=== PATIENT | male | born 1990 | race Caucasian/White ===

== ENCOUNTER 2023-10-11 05:50 | Day surgery (SDC) | payer OTHER, SELFPAY ==
[2023-10-05 08:47] VITALS: BMI 26.7
[2023-10-11 06:50] VITALS: BP 127/59; PULSE 84; RESP 20; TEMP 37.2; O2SAT 98
--- NOTE | 2023-10-11 07:17 | WPDHPUPDATE1 ---
History and Physical Update Update Date/Time: 10/11/23 07:17 History and Physical has been reviewed, including an updated exam of the patient. There are NO changes in the patient's condition. Risks, benefits, and alternatives have been discussed and questions answered. Patient agrees to proceed with procedure.
[2023-10-11 07:33] VITALS: BP 104/63; PULSE 76; RESP 12; O2SAT 99
[2023-10-11 07:43] VITALS: BP 101/57; PULSE 76; RESP 12; O2SAT 99
[2023-10-11 07:53] VITALS: BP 98/56; PULSE 75; RESP 16; O2SAT 99
[2023-10-11] MEDS: LIDO 1%/EPINEPHRINE 1:100,000 50 ML VIAL 10 ML INFILTRATE (07:53)
[2023-10-11] MEDS: BUPivacaine HCL 0.5% 10 ML AMP INFILTRATE (07:53)
[2023-10-11 08:04] VITALS: BP 144/81; PULSE 76; RESP 16; O2SAT 100
--- NOTE | 2023-10-11 08:12 | W.PM.PROC2 ---
Procedure Note - Detailed Date of Procedure 10/11/23 Pre-op Diagnosis Right Flank Subcutaneous Mass Post-op Diagnosis Other ( Right flank epidermal inclusion cyst.) Procedure Performed Excision right flank epidermal inclusion cyst with 4.5cm intermediate layered wound closure Surgeon Reynold Bain MD Licensed Massage Practitioner [place] [employer]AY[employer] student Anesthesia Local Indications patient is a 33-year-old gentleman who presents with a epidermal inclusion cyst on the right flank region. Is on his belt line and causes irritation. He presents now for excision. Findings The epidermal inclusion cyst measured 2.5x1.5x1cm. Required a 4.5cm intermediate layered wound closure. Description of Procedure After informed consent was obtained patient brought to the operating was placed in the left lateral decubitus position on operating table. The area the right flank region was then prepped and draped usual sterile fashion. A time-out was then performed correctly identifying the patient as well as procedure to be performed. No antibiotics were given as no IV was started as this was a local anesthetic procedure. I then proceeded to anesthetize the area the 1% lidocaine mixed with 0.5% Marcaine. Once adequate anesthesia was obtained I then proceeded to make a transverse elliptical incision with a scalpel to include the jones of the cyst. The incision was carried deeply down to the dermis skin with a scalpel the electrocautery excised out the ellipse of tissue containing the cyst wall without rupturing the cyst. The specimen was measured sent to pathology for examination. The cyst measured 2.5x1.5x1cm. I then achieved hemostasis in incision utilized electrocautery. The wound was then closed with a intermediate layered wound closure measuring 4.5cm. Interrupted 3-0 Vicryl sutures were placed in the subcutaneous tissues and in the deep dermal layer. The skin edges were approximated utilizing a running subcuticular 4-0 Monocryl suture. The incision was then cleaned the skin glue was applied. The patient tolerated the procedure well no complications. All sponges, needles, and instrument counts were correct at the end procedure. EBL was _2__cc. The patient was awakened and taken to recovery in stable and satisfactory condition. Implants None Estimated Blood Loss 2 Drains No Packing No Pathology Yes ( epidermal inclusion cyst sent to pathology) Complications No immediate complications Condition Stable Disposition PACU [facility] Billing Surgery - Charge Forward: Surgery Billing
== END 2023-10-11 08:19 | disposition home or self-care (01) ==
PROVIDERS: PCP Internal Medicine; Visit Provider Surgery
PROC: (CPT 21931; principal; 2023-10-11 07:30)
DX: R22.2 Localized swelling, mass and lump, trunk (principal)
CPT/HCPCS: 21931

== ENCOUNTER 2023-10-11 10:15 | Outpatient (NON) | payer OTHER, SELFPAY | END 2023-10-11 10:16 | disposition home or self-care (01) | LOC: ANHLAB 10-12 10:16 | PROVIDERS: PCP Internal Medicine; Visit Provider Surgery | DX: L72.0 Epidermal cyst (principal) | CPT/HCPCS: 88304 ==

== ENCOUNTER 2025-01-22 11:52 | Outpatient (CLI) | payer OTHER, SELFPAY | END 2025-01-22 11:53 | disposition home or self-care (01) | LOC: GOSHIMG 11:52 | PROVIDERS: PCP Clinical Nurse Specialist; Visit Provider Clinical Nurse Specialist | DX: R07.81 Pleurodynia (principal); D64.9 Anemia, unspecified | CPT/HCPCS: 71046; 71100 ==

== ENCOUNTER 2025-02-18 08:15 | Outpatient (CLI) | payer OTHER, SELFPAY ==
--- NOTE | ~2025-02-18 | CT_ITS ---
EXAMINATION: CT abdomen pelvis w con DATE: 02/18/2025 08:43 INDICATION: Pleurodynia and right flank pain and iron deficiency anemia TECHNIQUE: Computed tomography (CT) of the abdomen and pelvis was performed with 100 mL Omnipaque-350 intravenous contrast. Automated exposure control and iterative reconstruction technique were employe d. The dose-length product was 446.01 mGy-cm. COMPARISON: None FINDINGS: Lung bases are clear. Heart size normal. No pericardial or pleural effusion. Liver, gallbladder, sple en, pancreas, bilateral adrenal glands and kidneys are normal. Bladder is normal. Bowels including th e appendix are normal. No free intraperitoneal gas or fluid. No pathologically enlarged abdominal or pelvic lymphadenopathy. Mild lumbar and lower thoracic spondylosis. IMPRESSION: 1. Normal CT of the abdomen and pelvis. Reviewed, dictated and finalized at location B.
== END 2025-02-18 08:16 | disposition home or self-care (01) ==
LOC: MICIMG 08:15
PROVIDERS: PCP Clinical Nurse Specialist; Visit Provider Clinical Nurse Specialist
DX: R07.81 Pleurodynia (principal); D50.9 Iron deficiency anemia, unspecified; R10.9 Unspecified abdominal pain
CPT/HCPCS: 74177; Q9967

== ENCOUNTER 2025-03-09 10:47 | Outpatient (CLI) | payer OTHER, SELFPAY ==
[2025-03-09 11:09] LABS: Basophils Absolute Auto 0.1 K/mm3 (0.0-0.1); Basophils Percent Auto 0.8 % (0.2-1.2); Eosinophils Absolute Auto 0.1 K/mm3 (0-0.3); Eosinophils Percent Auto 1.1 % (0-4.4); Hematocrit 37.8 % (42.0-52.0); Hemoglobin 12.4 g/dL (14.0-18.0); Immature Granulocyte Absolute 0.01 K/mm3 (0.00-0.031); Immature Granulocyte Percent A 0.2 % (0-0.5); Lymphocytes Absolute Auto 2.16 K/mm3 (0.9-3.2); Lymphocytes Percent Auto 32.6 % (18.3-44.2); Mean Corpuscular HGB Conc 32.8 g/dl (32-36); Mean Corpuscular Hemoglobin 28.8 pg (26-34); Mean Corpuscular Volume 87.7 fl (80-100); Mean Platelet Volume 10.8 fl (7.4-10.4); Monocytes Absolute Auto 0.6 K/mm3 (0.1-0.6); Monocytes Percent Auto 9.5 % (2.6-8.5); Neutrophils Absolute Auto 3.7 K/mm3 (1.3-6.7); Neutrophils Percent Auto 55.8 % (45.5-73.1); Platelet Count Result 344 k/mm3 (150-375); Red Blood Count 4.31 M/mm3 (4.6-6.20); Red Cell Distribution Width 16.1 % (11.5-14.5); White Blood Count 6.6 K/mm3 (4.5-10.0)
--- OUTSIDE RECORDS SUMMARY | 2025-03-09 12:14 | XMS_ITS | Encounter Summary ---
Author Organization [facility] [employer] [facility] Address [address] [place] [address] Care Team Providers Care Blood Bank Laboratory Professional Name Role Phone Unavailable Primary Care Provider Unavailabl e Reason for Visit * Reason Comments Establish Care Encounter Details Date Type Department Care Team (Late st Contact Info) Description 03/09/2025 10:30 AM CDT Office Visit [facility] Oncology and Hematology - Khurram [address] [facility] [address] [place] [address] [place] [address] [place] [address] [address] [place] [address] Chronic anemia (Primary Dx) Social History Tobacco Use Types Packs/Day Years Used Date Smoking Tobacco: Never Smokeless Tobacco: Never Alcohol Use Standard Drinks/Week Comments Yes 0 (1 standard drink = 0.6 oz pur e alcohol) Occasionally Sex and Gender Information Value Date Recorded Sex Assigned at Not on file 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 Gender Identity Not on file Sexual Orientation Not on file documented as of this encounter Last Filed Vital Signs Vital Sign Reading Time Taken Comments Blood Pressure 115/71 03/09/2025 10:17 AM CDT Pulse 63 03/09/2025 10:17 AM CDT Temperature 36.4 C (97.6 F) 03/09/2025 10:17 AM CDT Respiratory Rate 17 03/09/2025 10:1 7 AM CDT Oxygen Saturation 97% 03/09/2025 10: 17 AM CDT Inhaled Oxygen Concentration - - Weight 74.8 kg (164 lb 12.8 oz) 025 10:17 AM CDT Height 165.1 cm (5' 5 ) 03/09/2025 10:1 7 AM CDT Body Mass Index 27.42 03/09/2025 10:17 AM CDT documented in this encounter Progress Notes * Jp Bentley MD - 03/09/2025 10:29 AM CDT Hematology-oncology consult Note Requesting Physician Primary Care Physician No primary care provider on file. Problem list There is no problem list on file for this patient. Previous TREATMENT ? Measurable Disease ? Reason for Visit Jose Kamara is a 34 y.o. male who was referred for consultation for iron deficiency anemia. History of present illness This is a pleasant 34-year-old male with been in good health referred to me for iron deficiency anemia. He denies any bleeding including melena hematochezia. His weight and appetite stable.Denies any diarrhea and constipation. Denies any abdominal pain. No nausea and vomiting. Patient had routine blood test done on November 03 that showed hemoglobin of 11.4. Repeat blood test on November 25, 2024 showed hemoglobin of 11.8. Iron level showed 58 with iron saturation of 13% and ferritin of 5. He was started on oral iron 65 mg once a day. He is feeling slightly better. He never had colonoscopy done. He denies being a vegetarian but eats red meat very rarely. He denies any stomach surgeries in past. Denies any family history of anemia. No other new complaints. Past Medical History No past medical history on file. Surgical History Past Surgical History: Procedure Laterality Date HX CYSTECTOMY 2022 Medications Current Outpatient Medications Medication Sig Dispense Refill ferrous sulfate 325 mg (65 mg iron) tablet Take 325 mg by mouth daily. No current facility-administered medications for this visit. Allergies No Known Allergies Immunizations: Immunization History Administered Date(s) Administered ([employer])(12 YR UP) COVID-19 VACCINE - EMERGENCY USE AUTHORIZATION, MRNA, [id number](PF) 30 MCG/0.3 MLIM SUSP 12/20/2020, 01/10/2021 Family History Family History Problem Relation Name Age of Onset Diabetes Father No Known Problems Mother No Known Problems Brother Social History Social History Tobacco Use Smoking status: Never Smokeless tobacco: Never Substance Use Topics Alcohol use: Yes Comment: Occasionally Review of Systems Constitutional: Patient did not mention fever; no night sweats; no anorexia; no weight loss; no fatique NEENT: Patient did not mention headache; no change in vision; no change in hearing; no sore throat;no dysphagia Respiratory: Patient did not mention shortness of breath; no pleuritic chest pain; no cough; no hemoptysis Cardiac: Patient did not mention cardiac-like chest pain; no palpitations; no orthopnea; no PND; noDOE GI: Patient did not mention abdominal pain; no nausea; no vomiting; no diarrhea; no hematochezia; no melena : Patient did not mention dysuria; no frequency; no hesitancy; no hematuria DRY CLEANING MACHINE OPERATOR: Musculosketetal: Patient did not mention bone pain; no arthralgia; no joint swelling; no myalgia; Skin: Patient did not mention pruritis; no rash; no petechiae; no ecchymoses Endocrine: Patient did not mention polydipsia; no polyuria; no unusual weight gain Neuro: Patient did not mention headache; no change in vision; no sensory changes; no muscle weakness; no confusion; no seizures Psych: Patient did not mention anxiety; no depression; Physical Exam Vitals: As per nursing note Constitutional: Well developed, well nourished, no acute distress, non-toxic appearance Teeth and gum. No signs of infection or swelling. Eyes: PERRL, conjunctiva normal HEENT: Atraumatic, external ears normal, nose normal, oropharynx moist, no pharyngeal exudates. no sinus tenderness Neck- normal range of motion, no tenderness, supple Respiratory: No respiratory distress, normal breath sounds, no rales, no wheezing Cardiovascular: Normal rate, normal rhythm, no murmurs, no gallops, no rubs GI: Soft, nondistended, normal bowel sounds, nontender, no splenomegaly, no hepatomegaly, no mass, no rebound, no guarding : No costovertebral angle tenderness Musculoskeletal: No edema, no tenderness, no deformities. Back- no tenderness Integument: Well hydrated, no rash, Digits and nails inspection normal Lymphatic: No lymphadenopathy noted Neurologic: Alert & oriented x 3, CN 2-12 normal, normal motor function, normal sensory function, no focal deficits noted Psychiatric: Speech and behavior appropriate ? labs No results found for this or any previous visit (from the past 24 hours). Labs from November 03, 2024 showed hemoglobin 11.4 WBC 6.3 MCV 83 platelets 344,000 iron 58 saturation 13 ferritin 5 total bilirubin 0.4 Pathology ? Imaging & Other Studies Performance Status? Assessment / Plan: ? Iron deficiency anemia. Patient is a pleasant 34-year-old male who has been in [facility] had routine blood testing done in October of last year that showed anemia with iron deficiency. He denies any bleeding including melena hematochezia. Denies any weight loss. He denies being a vegetarian but eats red meat very rarely. Denies any previous stomach surgeries. He was started on oral iron 65 mg once a day in October and feeling slightly better. At this time I will repeat labs including iron studies, soluble transferrin receptor, vitamin B12 and folic acid level along with CBC andCMP. Will check Hemoccult stool testing. Based on the repeat labs will decide about iron infusion. Based on the Hemoccult stool finding we will recommend GI consultation. I have answered all the patient's patient's satisfaction. Follow-up with me in 2 weeks. Thank you very much for allowing me to participate in Jose Asad's evaluation and management. Please feel free to contact if I can be of any further assistance in your patient???s care requiring hematology or oncology evaluation. Sincerely, ? ? Jp Bentley M.D. cell TOBACCO COUNSELING He is not a tobacco/nicotine user. Jp Bentley MD ,03/09/2025 11:04 AM ? Total time spent 60 minutes, two third of the total time spent counseling patient [id number]. CC:? documented in this encounter Plan of Treatment Upcoming Encounters Date Type Department Care Team (Late st Contact Info) Description 03/27/2025 10:00 AM CDT Office Visit [facility] Oncology and Hematology - Khurram [address] [facility] [address] [place] [address] Jp Bentley MD [address] [facility] [address] [place] [address] Scheduled Orders Name Type Priority Associated Diagnoses Orde r Schedule CBC WITH DIFFERENTIAL Lab Stat Chronic anemia Expected: 03/09/2025, Expires: 03/09/2026 COMPREHENSIVE METABOLIC PANEL Lab Stat Chronic anemia Expected: 03/09/2025, Expires: 03/09/2026 FERRITIN Lab Routine Chronic anemia Expected: 03/09/2025, Expires: 03/09/2026 IRON, TIBC, AND PERCENT SATURATION Lab Routine Chronic anemia Expected: 03/09/2025, Expires: 03/09/2026 VITAMIN B12 AND FOLATE Lab Routine Chronic anemia Expected: 03/09/2025, Expires: 03/09/2026 TRANSFERRIN RECEPTOR TFR SOLUBLE Lab Routine Chronic anemia Expected: 03/09/2025, Expires: 03/09/2026 OCCULT BLOOD IMMUNOASSAY, COLORECTAL SCREEN Lab Routine Chronic anemia Expected: 04/08/2025, Expires: 03/09/2026 documented as of this encounter Visit Diagnoses Diagnosis Chronic anemia- Primary Anemia, unspecified documented in this encounter
--- OUTSIDE RECORDS SUMMARY | 2025-03-09 12:14 | XMS_ITS | Clinical Summary ---
Author Organization [facility] Karma Valladares Address [address] [place] [address] Care Team Providers Care Correctional Lieutenant Name Role Phone Unavailable Primary Care Provider Unavailabl e Allergies No known active allergies Medications ferrous sulfate 325 mg (65 mg iron) tablet Take 325 mg by mouth daily. Active Active Problems No known active problems Encounters Date Type Department Care Team Description 03/09/2025 10:30 AM CDT Office Visit [facility] On[facility] and [facility]emat[facility] - [facility] [address] [facility] [address] [address] Jp Bentley MD Chronic anemia (Primary Dx) from Last 3 Months Family History Medical History Relation Name Comments No Known Problems Brother Diabetes Father No Known Problems Mother Relation Name Status Comments Brother Alive Father Alive Mother Alive Social History Tobacco Use Types Packs/Day Years Used Date Smoking Tobacco: Never Smokeless Tobacco: Never Alcohol Use Standard Drinks/Week Comments Yes 0 (1 standard drink = 0.6 oz pur e alcohol) Occasionally Sex and Gender Information Value Date Recorded Sex Assigned at Not on file 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 Gender Identity Not on file Sexual Orientation Not on file Last Filed Vital Signs Vital Sign Reading [...] Mass Index 27.42 03/09/2025 10:17 AM CDT Plan of Treatment Upcoming Encounters Date Type Department Care Team (Late st Contact Info) Description 03/27/2025 10:00 AM CDT Office Visit [facility] Oncology and Hematology - Khurram [address] [facility] [address] [place] [address] Jp Bentley MD [address] [facility] [address] [place] [address] Health Maintenance Due Date Last Done Comments DTAP/TDAP/TD VACCINES (1 - Tdap) 2009 HEPATITIS B VACCINES (1 of 3 - 19+ 3-dose series) 2009 INFLUENZA VACCINE (#1) 2024 09/01/2019 COVID-19 Vaccine (3 - 2023-2 5 season) 2024 01/10/2021, 12/20/2020 Preventative Visit- Commercial 11/26/2024 HPV VACCINES Aged Out No longer eligi ble based on patient's age to complete this topic Insurance
--- OUTSIDE RECORDS SUMMARY | 2025-03-09 12:14 | XMS_ITS | Clinical Summary ---
Author Organization [facility] [employer] Address [address] [place] [address] Care Team Providers Care Acid Tester Name Role Phone Unavailable Primary Care Provider Unavailabl e Source Comments [facility],non-owned Affiliates and Associated Physician Practices is amultiple site organization consisting of ambulatory clinics and hospital sitesin [place], [place], [place] and [place]. This disclosure is being madepursuant to the Care Everywhere program and may not contain all information available regarding this patient. Last updated 18.[facility] [employer] Allergies No known active allergies Immunizations Immunization Administration Dates Next Due INFLUENZA VACCINE, QUADR. (F LUZONE; FLULAVAL; FLUARIX; AFLURIA QUADRIVALENT; 6MO+), 0.5 ML (IIV4) 09/01/2019 Social History Tobacco Use Types Packs/Day Years Used Date Smoking Tobacco: Never Assessed Sex and Gender Information Value Date Recorded Sex Assigned at Not on file Legal Sex Male 5:17 PM CDT Gender Identity Not on file Sexual Orientation Not on file Plan of Treatment Health Maintenance Due Date Last Done Comments HIV SCREENING 2005 HEPATITIS C SCREENING 05/27/2008 DTAP/TDAP/TD VACCINES (1 - Tdap) 2009 HEPATITIS B VACCINE (1 of 3 - 19+ 3-dose series) 2009 COVID-19 VACCINE ( - 2023-2 5 season) 2024 DEPRESSION SCREENING 11/26/2024 INFLUENZA VACCINE (Season Ended) 2025 09/01/20 19 ZOSTER VACCINE (1 of 2) 2040 HIB VACCINE Aged Out No longer eligi ble based on patient's age to complete this topic HPV VACCINE Aged Out No longer eligi ble based on patient's age to complete this topic MENINGOCOCCAL (Group B) VACC INE SHARED DECISION-MAKING Aged Out No longer eligibl e based on patient's age to complete this topic MENINGOCOCCAL GROUPS A/C/Y/W VACCINE Aged Out No longer eligible b ased on patient's age to complete this topic PNEUMOCOCCAL VACCINE Aged Out No long er eligible based on patient's age to complete this topic Insurance [employer] [facility] Address: [facility] [id number] [place] [id number] [employer]
--- OUTSIDE RECORDS SUMMARY | 2025-03-09 12:14 | XMS_ITS | Referral Summary ---
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 Gender Identity Male 02/02/2023 11:14 AM TREE DOCTOR Sexual Orientation Straight 02/02/2023 11 :14 AM TREE DOCTOR Last Filed Vital Signs Vital Sign Reading Time Taken Comments Blood Pressure 130/85 05/18/2024 12:01 PM CDT Pulse 58 05/18/2024 12:01 PM CDT Temperature 36.5 C (97.7 F) 05/18/2024 12:01 PM CDT Respiratory Rate 16 05/18/2024 12:01 PM CDT Oxygen Saturation 99% 05/18/2024 12:01 PM CDT Inhaled Oxygen Concentration - - Weight 70.3 kg (155 lb) 05/18/2024 12:01 PM CDT Height 165.1 cm (5' 5 ) 05/18/2024 12:01 PM CDT Body Mass Index 25.79 05/18/2024 12:01 PM CDT Plan of Treatment Not on file Insurance [employer] [facility] [employer] [email or web address] Address: [facility] [address] [place] [address] [email or web address] Address: [facility] [id number] [place] [address] Care Teams Intelligence Research Specialist Relationship Specialty Start Date End Date No, Physician PCP - General 02/02/23
--- OUTSIDE RECORDS SUMMARY | 2025-03-09 12:14 | XMS_ITS | Clinical Summary ---
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 Gender Identity Male 02/02/2023 11:14 AM SENIOR GOVERNMENT PROGRAM ANALYST Sexual Orientation Straight 02/02/2023 11 :14 AM SENIOR GOVERNMENT PROGRAM ANALYST Obstetrics History Last Filed Vital Signs Vital Sign Reading [...] 05/18/2024 12:01 PM CDT Plan of Treatment Health Maintenance Due Date Last Done Comments Depression Screening 1990 Hepatitis C Screening 1990 Varicella Vaccines (1 of 2 - 13+ 2-dose series) 2003 Regular Well Visit/Exam 18-64 2008 DTaP/Tdap/Td Vaccine (7 - Td or Tdap) 11/07/2015 11/07/2005, 07/10/2000, 06/05/1995, Additional history exists Covid-19 Vaccine (2023- season) 2024 10/29/2022, 01/10/2021, 12/20/2020 Influenza Vaccine (Season Ended) 2025 09/18/2022, 09/26/2021, 09/01/2019 Hepatitis B Screening Completed 02/09/2000 , 09/15/1999, 08/11/1999 HPV Vaccines Aged Out No longer eligi ble based on patient's age to complete this topic Pneumococcal vaccine <65 Aged Out No longer eligible based on patient's age to complete this topic Insurance [employer] [facility] [employer] Address: [facility] [id number] [place] [address] [employer] Address: [facility] [address] [place] [phone] Care Teams Medical Claims Analyst Relationship Specialty Start Date End Date No, Physician PCP - General 02/02/23
[2025-03-09 12:33] LABS: Iron 226 ug/dL (49-181)
[2025-03-09 12:46] LABS: Alanine Aminotransferase 29 U/L (6-50); Albumin Level 4.7 g/dL (3.5-5.1); Alkaline Phosphatase 49 U/L (38-126); Anion Gap 8 mmol/L (4-12); Aspartate Amino Transferase 27 U/L (17-59); Bilirubin,Total 0.4 mg/dL (0.2-1.3); Blood Urea Nitrogen 22 mg/dL (9-20); Calcium 9.5 mg/dL (8.4-10.2); Carbon Dioxide 29 mmol/L (22-30); Chloride 100 mmol/L (98-107); Estimated Glomerular Filt Rate > 60; Glucose 92 mg/dL (65-110); Percent Iron Saturation 57 % (20-50); Potassium 4.3 mmol/L (3.4-5.0); Sodium 137 mmol/L (137-145)
[2025-03-09 13:10] LABS: Ferritin 6.74 ng/mL (17.9-464)
[2025-03-09 13:54] LABS: Folic Acid 8.7 ng/mL (2.76->20)
== END 2025-03-09 10:48 | disposition home or self-care (01) ==
LOC: ANHLAB 10:48
PROVIDERS: PCP Clinical Nurse Specialist; Visit Provider Internal Medicine Hematology & Oncology
DX: D64.9 Anemia, unspecified (principal)
CPT/HCPCS: 36415; 80053; 82607; 82728; 82746; 83540; 83550; 84238; 85025

== ENCOUNTER 2025-03-27 14:34 | Outpatient (NON) | payer OTHER, SELFPAY ==
[2025-03-27 14:48] LABS: IFOB Positive Control Positive; Immunochemical Fecal Occult Bl Negative (N)
--- OUTSIDE RECORDS SUMMARY | 2025-03-28 14:31 | XMS_ITS | Clinical Summary ---
Author Organization [facility] Karma young Rodney Address [address] [place] [address] Care Team Providers Care Product Management Manager Name Role Phone Unavailable Primary Care Provider Unavailabl e Allergies No known active allergies Medications ferrous sulfate 325 mg (65 mg iron) tablet Take 325 mg by mouth daily. Active Active Problems No known active problems Encounters Date Type Department Care Team Description 03/27/2025 10:00 AM CDT Office Visit [facility] Oncology and Hematology [facility] [address] [place] [address] Jp Bentley MD Chronic anemia (Primary Dx) 03/16/2025 Orders Only [facility] Oncology and Hematology [facility] [address] [place] [address] Jp Bentley MD 03/10/2025 External Device Data STL ABSTRACTION Provider, Abstract 03/10/2025 External Device Data STL ABSTRACTION Provider, Abstract 03/10/2025 External Device Data STL ABSTRACTION Provider, Abstract 03/09/2025 10:30 AM CDT Office Visit [facility] Oncology and Hematology - [place] [address] [place] [address] Jp Bentley MD Chronic anemia (Primary Dx) 03/09/2025 Orders Only [facility] Oncology and Hematology [facility] [address] [place] [id number] Jp Bentley MD from Last 3 Months Family History Medical History Relation Name Comments No Known Problems Brother Diabetes Father No Known Problems Mother Relation Name Status Comments Brother Alive Father Alive Mother Alive Social History Tobacco Use Types Packs/Day Years Used Date Smoking Tobacco: Never Smokeless Tobacco: Never Tobacco Cessation:Counseling Given: Not Answered Alcohol Use Standard Drinks/Week Comments Yes 0 (1 standard drink = 0.6 oz pur e alcohol) Occasionally Sex and Gender Information Value Date Recorded Sex Assigned at Not on file 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 Gender Identity Not on file Sexual Orientation Not on file Last Filed Vital Signs Vital Sign Reading Time Taken Comments Blood Pressure 114/76 03/27/2025 9:49 AM CDT Pulse 64 03/27/2025 9:49 AM CDT Temperature 36.6 C (97.9 F) 03/27/2025 9:49 AM CDT Respiratory Rate 16 03/27/2025 9:49 AM CDT Oxygen Saturation 97% 03/27/2025 9:49 AM CDT Inhaled Oxygen Concentration - - Weight 75.1 kg (165 lb 9.6 oz) 03/27/2025 9:49 A M CDT Height 165.1 cm (5' 5 ) 03/09/2025 10:17 AM CDT Body Mass Index 27.56 03/09/2025 10:17 AM CDT Plan of Treatment Upcoming Encounters Date Type Department Care Team (Late st Contact Info) Description 07/03/2025 10:30 AM CDT Office Visit [facility] Oncology and Hematology - [place] [address] [facility] [address] [place] [address] Jp Bentley MD [address] [facility] [address] [place] [address] Health Maintenance Due Date Last Done Comments DTAP/TDAP/TD VACCINES (1 - Tdap) 2009 HEPATITIS B VACCINES (1 of 3 - 19+ 3-dose series) 2009 INFLUENZA VACCINE (#1) 2024 09/01/2019 COVID-19 Vaccine (3 - 2023-2 5 season) 2024 01/10/2021, 12/20/2020 Preventative Visit- Commercial 11/26/2024 HPV VACCINES Aged Out No longer eligi ble based on patient's age to complete this topic Procedures Procedure Name Priority Date/Time Associated Diagnosis Comments COMPREHENSIVE METABOLIC PANEL Routine 03/09/2025 3:25 PM CDT TRANSFERRIN RECEPTOR TFR SOLUBLE Routine 03/09/2025 11:00 AM CDT from Last 3 Months Results * COMPREHENSIVE METABOLIC PANEL (03/09/2025 3:25 PM CDT) Blood Jp Bentley MD CHEMISTRY ORDERABLES Final Resu lt * TRANSFERRIN RECEPTOR TFR SOLUBLE (03/09/2025 11:00 AM CDT) Blood Jp Bentley MD CHEMISTRY ORDERABLES Final Resu lt from Last 3 Months Insurance OPEN ACCESS HMO
--- OUTSIDE RECORDS SUMMARY | 2025-03-28 14:31 | XMS_ITS | Referral Summary ---
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 Gender Identity Male 02/02/2023 11:14 AM USED CAR SALES SUPERVISOR Sexual Orientation Straight 02/02/2023 11 :14 AM USED CAR SALES SUPERVISOR Last Filed Vital Signs Vital Sign Reading [...] of Treatment Not on file Insurance [employer] Address: [facility] [id number] [place] [address] [employer] Address: [facility] [id number] [place] [address] Care Teams Turf And Grounds Supervisor Relationship Specialty Start Date End Date No, Physician PCP - General 02/02/23
--- OUTSIDE RECORDS SUMMARY | 2025-03-28 14:31 | XMS_ITS | Encounter Summary ---
Author Organization [facility] Address [address] [place] [address] Care Team Providers Care Sales Representative Jewelry Name Role Phone Unavailable Primary Care Provider Unavailabl e Reason for Visit * Reason Comments Follow Up Encounter Details Date Type Department Care Team (Late st Contact Info) Description 03/27/2025 10:00 AM CDT Office Visit [facility] Oncology and Hematology - [place] [address] [place] [address] [facility] [address] [place] [address] [place] [address] [place] [address] [address] [place] [address] Chronic anemia (Primary Dx) Social History Tobacco Use Types Packs/Day Years Used Date Smoking Tobacco: Never Smokeless Tobacco: Never Tobacco Cessation:Counseling Given: Not Answered Alcohol Use Standard Drinks/Week Comments Yes 0 (1 standard drink = 0.6 oz pur e alcohol) Occasionally Sex and Gender Information Value Date Recorded Sex Assigned at Not on file 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 Sex: male : 1990 DIAGNOSIS Iron deficiency anemia CURRENT TREATMENT Iron 65 mg daily TREATMENT HISTORY SUBJECTIVE Patient came to the office for follow-up visit. He denies any excessive tiredness and fatigue. No bleeding and bruising. No melena hematochezia. Weight and appetite stable. No other new complaints. Review of system Constitutional: Patient did not mention fevers, sweats, fatigue, malaise, weight loss HEENT: Patient did not mention sinus congestion, hearing or vision problems Respiratory: Patient did not mention cough, dyspnea, wheeze Cardiovascular: Patient did not mention chest pain, exertional chest pressure/discomfort, nausea, syncope, shortness of breath GI: Patient did not mention constipation, diarrhea, dsyphagia, reflux symptoms, vomiting, melena : Patient did not mention dysuria, frequency, incontinence, urgency Integumentary system: no lymphadenopathy, sweats, flushing Musculoskeletal: Patient not mention: myalgia, arthralgia Neurological: Patient did not mention blurry or disturbed vision, numbness/weakness, dizziness Skin: No lumps, bumps or rashes. Objective: Vital signs in last 24 hours: As per nursing note Exam: General appearance: alert, cooperative, no distress, appears stated age Head: normocephalic, without obvious abnormality, atraumatic Eyes: conjunctivae/corneas clear, EOM's intact Ears: normal external ear canals AU Nose: Nares normal. Septum midline. Mucosa normal. No drainage or sinus tenderness Throat: Lips, mucosa, and tongue normal. Teeth and gums normal Neck: supple, symmetrical, trachea midline. Lungs: clear to auscultation bilaterally Heart: regular rate and rhythm, S1, S2 normal, no murmur, click, rub or gallop Abdomen: soft, non-tender. Bowel sounds normal. No masses, No organomegaly Extremities: extremities normal, atraumatic, no cyanosis or edema Skin: Skin color, texture, turgor normal. No rashes or lesions Lymph nodes: No lymphadenopathy Neuro: No obvious focal deficit PATH LABS Labs from March 09 showed creatinine 0.8 B12 451 iron 226 saturation 57 ferritin 6.7 hemoglobin 12.4 @IMAGEIMP@ Assessment: Plan: There are no active problems to display for this patient. Iron deficiency anemia. Unclear etiology. Patient is not a vegetarian but rarely eats red meat. He denies any stomach surgeries. Denies any bleeding. Hemoccult stool testing was ordered and results are pending. Labs showed Ater in the iron studies with elevated iron saturation and serum iron with low ferritin. Clinically he is feeling better and hemoglobin has improved. He will continue oral iron65 mg and a day with orange juice. No need for iron infusion. I will repeat fasting iron profile in3 months. Follow-up in 3 months. ? TOBACCO COUNSELING He is not a tobacco/nicotine user. 03/27/2025 Jp Bentley MD documented in this encounter Plan of Treatment Upcoming Encounters Date Type Department Care Team (Late st Contact Info) Description 07/03/2025 10:30 AM CDT Office Visit [facility] Oncology and Hematology - [place] [address] [facility] [address] [place] [address] Jp Bentley MD [address] [facility] [address] [place] [address] Scheduled Orders Name Type Priority Associated Diagnoses Orde r Schedule CBC WITHOUT DIFFERENTIAL Lab Stat Chronic anemia Expected: 06/19/2025, Expires: 03/27/2026 FERRITIN Lab Routine Chronic anemia Expected: 06/19/2025, Expires: 03/27/2026 IRON, TIBC, AND PERCENT SATURATION Lab Routine Chronic anemia Expected: 06/19/2025, Expires: 03/27/2026 VITAMIN B12 AND FOLATE Lab Routine Chronic anemia Expected: 06/19/2025, Expires: 03/27/2026 documented as of this encounter Visit Diagnoses Diagnosis Chronic anemia- Primary Anemia, unspecified documented in this encounter
--- OUTSIDE RECORDS SUMMARY | 2025-03-28 14:31 | XMS_ITS | Clinical Summary ---
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 Gender Identity Male 02/02/2023 11:14 AM DIAMOND DRILLER Sexual Orientation Straight 02/02/2023 11 :14 AM DIAMOND DRILLER Obstetrics History Last Filed Vital Signs Vital [...] patient's age to complete this topic Insurance [employer] Address: [facility] [id number] [place] [address] [employer] Address: [facility] [address] [place] [address] Care Teams Sales Contracts Analyst Relationship Specialty Start Date End Date No, Physician PCP - General 02/02/23
--- OUTSIDE RECORDS SUMMARY | 2025-03-28 14:31 | XMS_ITS | Clinical Summary ---
Author Organization [facility] [employer] Address [address] [address] Care Team Providers Care Fence Repairman Name Role Phone Unavailable Primary Care Provider Unavailabl e Source Comments [facility],non-owned Affiliates and Associated Physician Practices is amultiple site organization consisting of ambulatory clinics and hospital sitesin [place], [place], [place] and [place]. This disclosure is being madepursuant to the Care Everywhere program and may not contain all information available regarding this patient. Last updated 18.[facility] Allergies No known active allergies Immunizations Immunization [...] to complete this topic Insurance [employer] C[employer] C[employer]NA
== END 2025-03-27 14:35 | disposition home or self-care (01) ==
LOC: ANHLAB 14:35
PROVIDERS: PCP Clinical Nurse Specialist; Visit Provider Internal Medicine Hematology & Oncology
DX: D64.9 Anemia, unspecified (principal)
CPT/HCPCS: 82274